=== PATIENT | female | born 1995 | race African-American/Black ===

== ENCOUNTER 2017-03-09 15:03 | Emergency (ER) | payer OTHER ==
[~2017-03-09] VITALS: Ht 154.9 cm; Wt 95.3 kg
[~2017-03-09 15:03] MED LIST: ALBUTEROL SULF8.5 GM INH; AZITHROMYCIN250 MG ORAL; DIFLUCAN150 MG PO; EXCEDRIN MIGRA1 EAC1 PO; IBUPROFEN600 MG ORAL; LIDOCAINE VISC100 ML MT; NAPROSYN500 M1 ORAL; NKM; PREDNISONE20 MG ORAL
[2017-03-09 15:54] LABS: APPEARANCE,URINE CLEAR; KETONES,URINE NEGATIVE (NEGATIVE); LEUKOCYTE ESTERASE ,URINE 3+ (NEGATIVE); NITRITE,URINE NEGATIVE (NEGATIVE); PH,URINE 7 (4.5-8.0); PROTEIN,URINE NEGATIVE (NEGATIVE); UROBILINOGEN,URINE NORMAL MG/DL (0.0-1.0)
[2017-03-09 16:06] LABS: BACTERIA,URINE FEW /HPF; SQUAMOUS EPITHELIAL CELL,UR FEW /LPF (NONE/OCC); YEAST,URINE FEW /HPF
[2017-03-09] MEDS ORDERED: Fluconazole 100mg tab ORAL ONE (16:15)
--- NOTE | 2017-03-09 17:03 | Emergency Room Report ---
History of Present Illness General Chief Complaint: Vaginal Source: Patient Present Illness HPI 21-year-old female presents to the emergency department complaining of vaginal discharge, malodorous, itching and swelling of the external vaginal labia x4 days. Patient denies fevers or chills. Patient denies recent unprotected intercourse or history of STDs. Patient denies abdominal pain, hematuria or frequency. Patient does report dysuria. She reports 10 out of 10 in severity burning sensation in the vaginal area. Patient denies swollen tender lymph nodes, joint pain or recent illness. She states she attempted to use Monistat OTC with no relief. She believes this may her symptoms worse. Denies CP, Palpitations, LOC, AMS, dizziness, Changes in Vision, Sensation, paresthesias, or a sudden severe headache. Allergies: Coded Allergies: No Known Allergies (Unverified , 03/25/14) Patient History Past Medical History: see triage record Past Surgical History: none Pertinent Family History: none Last Menstrual Period: 9-4 Now: No Immunizations: UTD Reviewed Nursing Documentation: PMH: Agreed, PSxH: Agreed Nursing Documentation-PMH Past Medical History: No History, Except For Hx Asthma: Yes Hx Seizures: Yes - last episode 10yrs ago Review of Systems All Other Systems: negative except mentioned in HPI Physical Exam Vital Signs Date Time Temp Pulse Resp B/P (MAP) Pulse Ox O2 Delivery O2 Flow Rate FiO2 03/09/17 15:07 98.1 91 18 95/74 98 Room Air Sp02 EP Interpretation: reviewed, normal General Appearance: no apparent distress, alert, GCS 15, non-toxic Head: normocephalic, atraumatic Eyes: bilateral eye normal inspection, bilateral eye PERRL ENT: hearing grossly normal, normal voice Neck: full range of motion Respiratory: lungs clear, normal breath sounds, speaking full sentences Cardiovascular #1: regular rate, rhythm Gastrointestinal: normal bowel sounds, non tender, soft, no guarding, no rebound Rectal: deferred Genitourinary: normal inspection, no CVA tenderness, adnexa normal, bladder normal, cervix normal, os closed, other - thick white/ yellow-green d/c noted in the vaginal vault, no CMT. External labia are swollen and erythematous. no lesions. Musculoskeletal: back normal, gait/station normal, normal range of motion, non- tender Neurologic: alert, oriented x3, responsive, motor strength/tone normal, sensory intact, speech normal Psychiatric: judgement/insight normal, memory normal, mood/affect normal Skin: normal color, no rash, warm/dry, well hydrated Lymphatic: no adenopathy Medical Decision Making PA Attestation Dr. Oliver is my supervising Physician whom patient management has been discussed with. Diagnostic Impression: Primary Impression: Yeast vaginitis Additional Impression: Bacterial vaginosis ER Course 21-year-old female presents to the emergency department complaining of vaginal discharge, malodorous, itching and swelling of the external vaginal labia x4 days. Patient denies fevers or chills. Patient denies recent unprotected intercourse or history of STDs. Patient denies abdominal pain, hematuria or frequency. Patient does report dysuria. She reports 10 out of 10 in severity burning sensation in the vaginal area. Patient denies swollen tender lymph nodes, joint pain or recent illness. She states she attempted to use Monistat OTC with no relief. She believes this may her symptoms worse. Denies CP, Palpitations, LOC, AMS, dizziness, Changes in Vision, Sensation, paresthesias, or a sudden severe headache. -Pt. requests OCP refill for ovarian cyst and menstrual cycle normalization. Ddx considered but are not limited to UTi , Pyelo, STI, Stone, Cystitis, vaginal laceration, vaginitis. Vital signs: are WNL, pt. is afebrile H& PE are most consistent with: UTI and possible vaginal wall laceration. ORDERS: - UA labs are attached - few yeast, otherwise no indication of urinary infection. -Urine hcg: negative - Vaginal Wet mount Prep: few yeast, few clue cells, mod WBC's, and many bacteria, no trich. ED INTERVENTIONS: -Diflucan PO -D/w Pt. the results of her lab work, discussed proper PMD follow up. Gave ED return precautions. also d/w pt. not to drink alcohol while taking flagyl. DISCHARGE: At this time pt. is stable for d/c to home. Will provide printed patient care instructions, and any necessary prescriptions. Care plan and follow up instructions have been discussed with the patient prior to discharge. Labs Test 03/09/17 15:35 Urine Color Pale yellow Urine Appearance Clear Urine pH 7 (4.5-8.0) Urine Specific [place] 1.010 (1.005-1.035) Urine Protein Negative (NEGATIVE) Urine Glucose (UA) Negative (NEGATIVE) Urine Ketones Negative (NEGATIVE) Urine Occult Blood 1+ (NEGATIVE) Urine Nitrite Negative (NEGATIVE) Urine Bilirubin Negative (NEGATIVE) Urine Urobilinogen Normal MG/DL (0.0-1.0) Urine Leukocyte Esterase 3+ (NEGATIVE) Urine RBC 2-4 /HPF (0 - 2) Urine WBC 2-4 /HPF (0 - 2) Urine Squamous Epithelial Cells Few /LPF (NONE/OCC) Urine Bacteria Few /HPF (NONE) Urine Yeast Few /HPF (NONE) Urine HCG, Qualitative Negative Last Vital Signs Date Time Temp Pulse Resp B/P (MAP) Pulse Ox O2 Delivery O2 Flow Rate FiO2 03/09/17 15:07 98.1 91 18 95/74 98 Room Air Disposition: HOME, SELF-CARE Condition: Stable Scripts Noreth A-Et Estra/Fe Fumarate (MICROGESTIN FE 1-20 TABLET) 1 Each Tablet 1 EACH PO DAILY for 30 Days, #1 PACK 4 Refills Prov: Anayeli Cruz P.A. 03/09/17 Ibuprofen* (MOTRIN*) 600 Mg Tablet 600 MG ORAL THREE TIMES A DAY, #30 TAB 0 Refills Prov: Anayeli Cruz P.A. 03/09/17 Fluconazole (FLUCONAZOLE) 100 Mg Tablet 100 MG ORAL DAILY for 2 Days, #2 TAB 0 Refills Prov: Anayeli Cruz P.A. 03/09/17 Metronidazole* (FLAGYL*) 500 Mg Tablet 500 MG ORAL BID for 7 Days, #14 TAB 0 Refills Prov: Anayeli Cruz P.A. 03/09/17 Patient Instructions: Bacterial Vaginosis, Grfu-ro-Otuh, Vaginal Yeast Infection, Adult Additional Instructions: Take medications as directed. Follow up with a Primary Care Provider in 3-5 days, even if your symptoms have resolved. --Please review list of primary care clinics, if you do not already have a primary care provider Return sooner to ED if new symptoms occur, or current symptoms become worse. ! Do not drink alcohol while taking Flagyl/Metronidazole as this will cause a skin reaction. - Please note that this Emergency Department Report was dictated using [employer] technology software, occasionally this can lead to erroneous entry secondary to interpretation by the dictation equipment. Anayeli Cruz Mar 09, 2017 17:03
[2017-03-09] MEDS ORDERED: IBUPROFEN600 MG ORAL (17:05)
[2017-03-09] MEDS ORDERED: FLUCONAZOLE100 MG ORAL (17:05)
[2017-03-09] MEDS ORDERED: METRONIDAZOLE500 MG ORAL (17:05)
[2017-03-09] MEDS ORDERED: MICROGESTIN FE1 EAC1 PO ×2 (17:05→17:08)
[2017-03-09 17:25] VITALS: BP 124/76
== END 2017-03-09 17:25 | disposition home or self-care (01) ==
LOC: EMR 17:20
DX: B37.3 Candidiasis of vulva and vagina (principal); N76.0 Acute vaginitis; B96.89 Other specified bacterial agents as the cause of diseases classified elsewhere; J45.909 Unspecified asthma, uncomplicated
CPT/HCPCS: 81003; 81025; 87086; 87210; 99284

== ENCOUNTER 2017-03-30 23:22 | Emergency (ER) | payer OTHER ==
[~2017-03-30] VITALS: Ht 154.9 cm; Wt 90.7 kg
[~2017-03-30 23:22] MED LIST changes: +FLUCONAZOLE100 MG ORAL; +METRONIDAZOLE500 MG ORAL; +MICROGESTIN FE1 EAC1 PO
[2017-03-31 00:02] VITALS: BP 105/69
[2017-03-31 00:17] LABS: APPEARANCE,URINE SLIGHTLY CLOUDY; KETONES,URINE NEGATIVE (NEGATIVE); LEUKOCYTE ESTERASE ,URINE 3+ (NEGATIVE); NITRITE,URINE NEGATIVE (NEGATIVE); PH,URINE 6 (4.5-8.0); PROTEIN,URINE 1+ (NEGATIVE); UROBILINOGEN,URINE NORMAL MG/DL (0.0-1.0)
[2017-03-31 00:31] LABS: BACTERIA,URINE MODERATE /HPF; MUCUS,URINE FEW /LPF (NONE/OCC); RBC,URINE 15-20 /HPF (0 - 2); SQUAMOUS EPITHELIAL CELL,UR MODERATE /LPF (NONE/OCC); WBC,URINE 30-40 /HPF (0 - 2)
[2017-03-31] MEDS ORDERED: BACTRIM DS TAB1 EAC1 ORAL (00:45)
[2017-03-31] MEDS ORDERED: METROGEL-VAGINA70 G1 VAGIN (00:45)
[2017-03-31 01:01] VITALS: BP 98/70
--- NOTE | 2017-03-31 04:14 | Emergency Room Report ---
History of Present Illness General Chief Complaint: Female Urogenital Problems Source: Patient Present Illness HPI Patient presents with complaints of burning with urination Urinary frequency Patient feels that she possibly has a yeast infection as well with some mild vaginal discharge Denies any chest pressures of breath denies any flank pain Suprapubic discomfort is rated as 3/10 Allergies: Coded Allergies: No Known Allergies (Unverified , 03/30/17) Patient History Past Medical History: see triage record Pertinent Family History: none Last Menstrual Period: mar 16 Now: No Reviewed Nursing Documentation: PMH: Agreed, PSxH: Agreed Nursing Documentation-PMH Past Medical History: No History, Except For Hx Asthma: Yes Hx Seizures: Yes - last episode 12yrs ago Review of Systems All Other Systems: negative except mentioned in HPI Physical Exam Vital Signs Date Time Temp Pulse Resp B/P (MAP) Pulse Ox O2 Delivery O2 Flow Rate FiO2 03/30/17 23:28 98.1 77 16 105/69 98 Room Air Sp02 EP Interpretation: reviewed, normal General Appearance: well appearing, no apparent distress Head: normocephalic, atraumatic Eyes: bilateral eye PERRL, bilateral eye EOMI ENT: hearing grossly normal, normal pharynx, TMs + canals normal, uvula midline Neck: full range of motion, supple, no meningismus, no bony tend Respiratory: lungs clear, normal breath sounds, no rhonchi, no respiratory distress, no retraction, no accessory muscle use Cardiovascular #1: normal peripheral pulses, regular rate, rhythm, no edema, no gallop, no JVD, no murmur Gastrointestinal: normal bowel sounds, non tender, soft, no mass, no organomegaly, non-distended, no guarding, no hernia, no pulsatile mass, no rebound Genitourinary: no CVA tenderness Musculoskeletal: normal inspection Neurologic: oriented x3, responsive, parquet floor layer III-XII nml as tested, motor strength/ tone normal, sensory intact Psychiatric: mood/affect normal Skin: normal color, no rash, warm/dry, palpation normal Lymphatic: normal inspection, no adenopathy Medical Decision Making Diagnostic Impression: Primary Impression: uti ER Course Patient has a benign medical evaluation my suspicion for pyelonephritis as low Patient has had a recent pelvic exam here in the emergency room Requires close followup with gynecology urine sample did show evidence of infection given her complaints of possible yeast infection patient was also symptomatically treated Labs Test 03/30/17 23:30 Urine Color Yellow Urine Appearance Slightly cloudy Urine pH 6 (4.5-8.0) Urine Specific [place] 1.030 (1.005-1.035) Urine Protein 1+ (NEGATIVE) Urine Glucose (UA) Negative (NEGATIVE) Urine Ketones Negative (NEGATIVE) Urine Occult Blood 2+ (NEGATIVE) Urine Nitrite Negative (NEGATIVE) Urine Bilirubin Negative (NEGATIVE) Urine Urobilinogen Normal MG/DL (0.0-1.0) Urine Leukocyte Esterase 3+ (NEGATIVE) Urine RBC 15-20 /HPF (0 - 2) Urine WBC 30-40 /HPF (0 - 2) Urine Squamous Epithelial Cells Moderate /LPF (NONE/OCC) Urine Bacteria Moderate /HPF (NONE) Urine Mucus Few /LPF (NONE/OCC) Urine HCG, Qualitative Negative Last Vital Signs Date Time Temp Pulse Resp B/P (MAP) Pulse Ox O2 Delivery O2 Flow Rate FiO2 03/31/17 01:01 98.1 81 20 98/70 100 Room Air Status: improved Disposition: HOME, SELF-CARE Condition: Stable Scripts Metronidazole* (METROGEL-VAGINAL*) 70 Gm Gel.w.appl 1 APPL VAGIN BEDTIME for 7 Days, GM Prov: DARCI LARA D.O. 03/31/17 Trimethoprim/Sulfamethoxazole 160/800* (BACTRIM DS TABLET*) 1 Each Tablet 1 TAB ORAL Q12H, #14 TAB 0 Refills Prov: DARCI LARA D.O. 03/31/17 Referrals: Tiago GARCIA,REFERRING (PCP) Patient Instructions: Urinary Tract Infection Additional Instructions: Patient is provided with the discharge instructions notified to follow up with primary doctor in the next 2-3 days otherwise return to the er with any worsening symptoms. Please note that this report is being documented using [employer] technology. This can lead to erroneous entry secondary to incorrect interpretation by the dictating instrument. DARCI LARA D.O. Mar 31, 2017 04:14
== END 2017-03-31 01:03 | disposition home or self-care (01) ==
LOC: EMR 03-31 00:22
DX: N39.0 Urinary tract infection, site not specified (principal); J45.909 Unspecified asthma, uncomplicated
CPT/HCPCS: 81003; 81025; 87086; 99283

== ENCOUNTER 2018-03-22 19:25 | Emergency (ER) | payer OTHER ==
[~2018-03-22] VITALS: Ht 154.9 cm; Wt 90.7 kg
[~2018-03-22 19:25] MED LIST changes: +BACTRIM DS TAB1 EAC1 ORAL; +METROGEL-VAGINA70 G1 VAGIN
[2018-03-22 19:53] VITALS: BP 109/78
--- NOTE | 2018-03-22 19:55 | Emergency Room Report ---
History of Present Illness General Chief Complaint: Abdominal Pain Source: Patient Present Illness HPI 23-year-old female patient presents ER complaining of diarrhea and painful urination 1 day. Reports diarrhea began at midnight today. Denies blood in stool. Denies recent travel outside states. Denies fever. Denies new foods in diet. Also complaining of painful urination. Reports yellow discharge during this time. Denies swelling Nicolas rash.. Denies hematuria or rash or lesions. Reports last sexual activity 2 months ago, states that use protection , reports one sexual partner. reports abdominal cramping during this time. Denies fever, chest pain, shortness of breath, flank pain, vomiting.denies back pain. Denies history of GI problems.denies foul smelling odor. Allergies: Coded Allergies: No Known Allergies (Unverified , 03/22/18) Patient History Past Medical History: see triage record Last Menstrual Period: February 2018 Reviewed Nursing Documentation: PMH: Agreed; PSxH: Agreed Nursing Documentation-PMH Past Medical History: No History, Except For Hx Asthma: Yes Hx Seizures: Yes - last episode 12yrs ago; ovarian cyst Review of Systems All Other Systems: negative except mentioned in HPI Physical Exam Vital Signs Date Time Temp Pulse Resp B/P (MAP) Pulse Ox O2 Delivery O2 Flow Rate FiO2 03/22/18 19:32 98.4 73 16 109/78 100 Room Air 98.4 Sp02 EP Interpretation: reviewed, normal General Appearance: well appearing, no apparent distress, alert, GCS 15, non- toxic Head: normocephalic, atraumatic Eyes: bilateral eye normal inspection, bilateral eye PERRL ENT: hearing grossly normal, normal pharynx, no angioedema, normal voice, uvula midline, moist mucus membranes Neck: full range of motion Respiratory: lungs clear, normal breath sounds, no rhonchi, no respiratory distress, no accessory muscle use, no wheezing, speaking full sentences Cardiovascular #1: regular rate, rhythm, no edema Gastrointestinal: non tender, soft, no mass, non-distended, no guarding, no rebound, other - negative obturator, negative Rovsing, negative Georges Genitourinary: no CVA tenderness Musculoskeletal: back normal, digits/nails normal, gait/station normal, normal range of motion, non-tender Neurologic: alert, oriented x3, responsive, motor strength/tone normal, sensory intact Psychiatric: mood/affect normal Skin: no rash Lymphatic: no adenopathy Medical Decision Making PA Attestation Dr. Schmid is my supervising Physician whom patient management has been discussed with. Diagnostic Impression: Primary Impression: Diarrhea Additional Impressions: Encounter for screening examination for sexually transmitted disease Dysuria ER Course Pt. presents to the ED c/o diarrhea and painful urination. Ddx considered but are not limited to gonorrhea, chalmydia, cystitis, pylonephritis, bacterial vaginosis, yeast infection. Ddx considered but are not limited to viral syndrome, gastritis, enteritis, no abdominal tenderness to palpation, negative Rovsing, negative obturator, does not require CT imaging, low suspicion for appendicitis. Vital signs: are WNL, pt. is afebrile Ordered UA, urine and abx. ER COURSE: UA results show no infection, does not require antibiotics at this time, low suspicion for UTI. Follow-up with PCP and discuss further treatment referral at that time. urine negative Provided patient with Rocephin and Azithromycin in the ER. Informed patient medications will cover for gonorrhea and chlamydia, needs further follow-up evaluation and possible treatment of other sexual transmitted infections. Advised to use safe sex practices including but not limited to use of condoms. Avoid sexual activity for the next weeks. Instructed patient to follow up with STI clinic and/or PCP for STI evaluation and further treatment as necessary. Instructed patient to inform partners of needs for evaluation and treatment of possible infections. Patient informed of likely viral cause of symptoms. No fever, no blood in stool, no recent travel or hospitalizations, does not require abx treatment at this time. No signs of dehydration, moist mucus membranes. Patient reports eating and drinking normally. Patient instructed on BRAT diet. Patient instructed to remain hydrated, drink plenty of fluids. Patient questions asked and answered. Patient states understanding and agreement to treatment plan. DISCHARGE: Patient is resting comfortably, in no acute distress, nontoxic appearing, talking without difficulty. Patient to take medications as instructed Will provide with patient care instructions and any necessary prescriptions. Care plan and follow-up instructions provided. Patient instructed to follow-up with primary care provider in 3 - 5 days. Patient questions asked and answered. Patient reports understanding and agreement to treatment plan. ER precautions given. Patient instructed to return to ER immediately for any new or worsening of symptoms including but not limited to increasing SOB, persistent fever. - Please note that this Emergency Department Report was dictated using [employer] technology software, occasionally this can lead to erroneous entry secondary to interpretation by the dictation equipment. Labs Test 03/22/18 19:38 Urine Color Yellow Urine Appearance Clear Urine pH 5 (4.5-8.0) Urine Specific [place] 1.025 (1.005-1.035) Urine Protein Negative (NEGATIVE) Urine Glucose (UA) Negative (NEGATIVE) Urine Ketones Negative (NEGATIVE) Urine Blood Negative (NEGATIVE) Urine Nitrite Negative (NEGATIVE) Urine Bilirubin Negative (NEGATIVE) Urine Urobilinogen Normal MG/DL (0.0-1.0) Urine Leukocyte Esterase 1+ (NEGATIVE) Urine RBC 0-2 /HPF (0 - 2) Urine WBC 0-2 /HPF (0 - 2) Urine Squamous Epithelial Cells Few /LPF (NONE/OCC) Urine Bacteria Few /HPF (NONE) Urine HCG, Qualitative Negative (NEGATIVE) Last Vital Signs Date Time Temp Pulse Resp B/P (MAP) Pulse Ox O2 Delivery O2 Flow Rate FiO2 03/22/18 19:32 98.4 73 16 109/78 100 Room Air 98.4 Disposition: HOME, SELF-CARE Condition: Stable Scripts Phenazopyridine Hcl* (PYRIDIUM*) 100 Mg Tablet 100 MG ORAL THREE TIMES A DAY for 3 Days, #9 TAB Prov: Israel Aviles 03/22/18 Patient Instructions: Diarrhea, Adult, [id number], Dysuria, Sexually Transmitted Disease Additional Instructions: Followup with primary care provider in 3 -5 days. Avoid spicy foods, avoid dairy foods. BRAT diet: bananas, rice, apple sauce, toast. Consider Imodium for diarrhea and Tylenol for pain symptoms. Followup with primary care provider and followup with STI clinic for further evaluation and treatment. Discuss referral to OBGYN and specialist as needed. Alert sexual partners for need for evaluation and treatment. Wear condoms during sex. Avoid sexual activity for 2 weeks. Drink plenty of fluids. Advised patient that Pyridium may cause urine to turn orange. Patient questions asked and answered. ER precautions given, patient instructed to return to ER immediately for any new or worsening of symptoms. Israel Aviles Mar 22, 2018 19:55
[2018-03-22] MEDS ORDERED: Azithromycin 250mg tab ORAL ONE (20:00)
[2018-03-22] MEDS ORDERED: Lidocaine 1% MPF 10mg/ml 5ml INJ ONE (20:00)
[2018-03-22 20:25] LABS: APPEARANCE,URINE CLEAR; BILIRUBIN, URINE NEGATIVE (NEGATIVE); NITRITE,URINE NEGATIVE (NEGATIVE); UROBILINOGEN,URINE NORMAL MG/DL (0.0-1.0)
[2018-03-22 20:37] LABS: GLUCOSE, URINE (UA) NEGATIVE (NEGATIVE); KETONES,URINE NEGATIVE (NEGATIVE); LEUKOCYTE ESTERASE ,URINE 1+ (NEGATIVE); PH,URINE 5 (4.5-8.0); PROTEIN,URINE NEGATIVE (NEGATIVE)
[2018-03-22 20:38] LABS: COLOR,URINE YELLOW
[2018-03-22] MEDS ORDERED: PHENAZOPYRIDIN100 MG ORAL (20:56)
[2018-03-22 21:06] VITALS: BP 110/78
== END 2018-03-22 21:08 | disposition home or self-care (01) ==
LOC: EMR 19:58
DX: R19.7 Diarrhea, unspecified (principal); R10.9 Unspecified abdominal pain; R30.0 Dysuria; Z11.3 Encounter for screening for infections with a predominantly sexual mode of transmission; J45.909 Unspecified asthma, uncomplicated
CPT/HCPCS: 81003; 81025; 96372; 99283; J0696; Q0144

== ENCOUNTER 2019-06-10 06:20 | Emergency (ER) | payer OTHER ==
[~2019-06-10] VITALS: Ht 154.9 cm; Wt 90.7 kg
[~2019-06-10 06:20] MED LIST changes: +PHENAZOPYRIDIN100 MG ORAL
[2019-06-10 06:44] VITALS: BP 107/68
--- NOTE | 2019-06-10 06:44 | Emergency Room Report ---
History of Present Illness General Chief Complaint: Chest Pain Source: Patient Present Illness HPI Patient presents with complaints of cough and congestion over the past 3 days onset was around Thursday Patient has been coughing up phlegm and now reports she saw tinges of blood as well Denies any headache denies any back or flank pain patient also has history of asthma There was a report of chest pain however patient's complaint is mainly with her cough causing pain to the upper chest Denies any pleurisy denies any fevers patient also has a sore throat and discomfort to the right ear Denies any posterior neck pain or photophobia Allergies: Coded Allergies: No Known Allergies (Unverified , 03/22/18) Patient History Past Medical History: see triage record Last Menstrual Period: 06/10/19 Now: No Reviewed Nursing Documentation: PMH: Agreed; PSxH: Agreed Nursing Documentation-PMH Hx Asthma: Yes Hx Seizures: Yes Review of Systems All Other Systems: negative except mentioned in HPI Physical Exam Vital Signs Date Time Temp Pulse Resp B/P (MAP) Pulse Ox O2 Delivery O2 Flow Rate FiO2 06/10/19 06:22 98.1 86 19 107/68 (81) 98 Room Air Sp02 EP Interpretation: reviewed, normal General Appearance: well appearing, no apparent distress Head: normocephalic, atraumatic Eyes: bilateral eye PERRL, bilateral eye EOMI ENT: hearing grossly normal, EOM grossly intact, pharyngeal erythema Neck: supple Respiratory: crackles - Fine crackles both lower lobes Cardiovascular #1: regular rate, rhythm, no edema Gastrointestinal: non tender, soft Musculoskeletal: normal inspection Neurologic: alert, oriented x3 Psychiatric: normal inspection Skin: no rash Lymphatic: no adenopathy Medical Decision Making Diagnostic Impression: Primary Impression: Pharyngitis ER Course Given the patient's history and presentation multiple differentials and consideration including but not limited to cardiac, cardiopulmonary, infectious etiology such as pneumonia, bronchitis pharyngitis, Patient does not appear septic or toxic given the history of asthma along with the duration of cough x-ray imaging is obtained No obvious acute process is seen Patient will be placed on antibiotics for the pharyngitis and requires close outpatient follow-up Chest X-Ray Diagnostic Results Chest X-Ray Diagnostic Results : Chest X-Ray Ordered: Yes # of Views/Limited/Complete: 1 View Indication: Other - Cough Interpretation: no consolidation, no effusion, no pneumothorax Impression: No acute disease Electronically Signed by: Corrie Russell DO Last Vital Signs Date Time Temp Pulse Resp B/P (MAP) Pulse Ox O2 Delivery O2 Flow Rate FiO2 06/10/19 06:22 98.1 86 19 107/68 (81) 98 Room Air Status: improved Disposition: HOME, SELF-CARE Condition: Stable Scripts Guaifenesin/Codeine Phos* (ROBITUSSIN AC*) 118 Ml Liquid 5 ML ORAL Q8HR PRN for For Cough for 5 Days, #118 ML 0 Refills Prov: Corrie Russell DO 06/10/19 Azithromycin* (ZITHROMAX*) 250 Mg Tablet 250 MG ORAL DAILY, #6 TAB 0 Refills Take two tables once daily for 1 day, then one tablet once daily for 4 days. Prov: Corrie Russell DO 06/10/19 Additional Instructions: Patient is provided with the discharge instructions notified to follow up with primary doctor in the next 2-3 days otherwise return to the er with any worsening symptoms. Please note that this report is being documented using [employer] technology. This can lead to erroneous entry secondary to incorrect interpretation by the dictating instrument. Corrie Russell DO Jun 10, 2019 06:44
[2019-06-10] MEDS ORDERED: ZITHROMAX250 MG ORAL (07:26)
[2019-06-10] MEDS ORDERED: GUAIFENESIN-CO118 M1 ORAL (07:26)
[2019-06-10 07:30] VITALS: BP 111/75
--- NOTE | 2019-06-10 15:18 | Diagnostic Imaging Report ---
Indication: Dyspnea Comparison: None A single view chest radiograph was obtained. Findings: Cardiomediastinal appearance is within normal limits for age. The lungs are clear. Pulmonary vascularity is appropriate. The diaphragmatic contour is smooth and costophrenic angles are sharp. No pleural effusions are identified. The bones are unremarkable. Impression: No acute findings
== END 2019-06-10 07:30 | disposition home or self-care (01) ==
LOC: EMR 07:03
DX: J02.9 Acute pharyngitis, unspecified (principal); J45.909 Unspecified asthma, uncomplicated; G40.909 Epilepsy, unspecified, not intractable, without status epilepticus
CPT/HCPCS: 71045; Z7502; 99283

== ENCOUNTER 2019-08-31 21:25 | Emergency (ER) | payer MEDICAID, OTHER ==
[~2019-08-31] VITALS: Ht 160 cm; Wt 105.7 kg
[~2019-08-31 21:25] MED LIST changes: +GUAIFENESIN-CO118 M1 ORAL; +ZITHROMAX250 MG ORAL
--- NOTE | 2019-08-31 21:43 | NUR ---
ED Nurse Note: pt presents to ED c/o vomiting for the last 8 weeks. pt states that she is 8 weeks and found out after 4 weeks. she has been vomiting daily since, reports 15 episodes of vomiting today. pt also states that she was spotting two days ago but not today. has pain in her RLQ, describes her abd as "feeling weak." pt denies blood in vomit, states it is mostly fluids
[2019-08-31 21:46] VITALS: BP 101/70
--- NOTE | 2019-08-31 21:52 | Emergency Room Report ---
History of Present Illness General Chief Complaint: Vomiting Source: Patient Present Illness HPI Patient presents with complaints of persistent nausea vomiting reports that she has been to [facility] 3 times over the past 2 weeks She did have an ultrasound done on last visit and was told that everything looked well with the Patient reports that on 1 of her last visit she was constipated and was given MiraLAX and she has done better with that Denies any diarrhea denies any chest pain or shortness of breath denies any pleurisy patient also has epigastric discomfort and burning Denies any vomiting of blood Patient reports being approximately 8 weeks COVID-19 risk:Contact w/high r: No COVID-19 risk:Travel to affect: No Has patient experienced parekh: No Allergies: Coded Allergies: No Known Allergies (Unverified , 03/22/18) Patient History Past Medical History: see triage record Last Menstrual Period: 07/06/19 Now: Yes : 1 Para: 0 Reviewed Nursing Documentation: PMH: Agreed; PSxH: Agreed Nursing Documentation-PMH Hx Asthma: Yes Hx Seizures: Yes Review of Systems All Other Systems: negative except mentioned in HPI Physical Exam Vital Signs Date Time Temp Pulse Resp B/P (MAP) Pulse Ox O2 Delivery O2 Flow Rate FiO2 08/31/19 21:27 97.9 89 18 101/70 (80) 98 Room Air Sp02 EP Interpretation: reviewed, normal General Appearance: no apparent distress - Patient however was somewhat nauseated Head: normocephalic, atraumatic Eyes: bilateral eye PERRL, bilateral eye EOMI ENT: hearing grossly normal, normal pharynx, TMs + canals normal, uvula midline Neck: full range of motion, supple, no meningismus, no bony tend Respiratory: lungs clear, normal breath sounds, no rhonchi, no respiratory distress, no retraction, no accessory muscle use Cardiovascular #1: normal peripheral pulses, regular rate, rhythm, no edema, no gallop, no JVD, no murmur Gastrointestinal: normal bowel sounds, non tender, soft, no mass - Patient is early in and a gravid abdomen is not palpable, no organomegaly, non- distended, no guarding, no hernia, no pulsatile mass, no rebound Genitourinary: no CVA tenderness Musculoskeletal: normal inspection Neurologic: motor strength/tone normal, label paster III-XII nml as tested, oriented x3 , sensory intact, responsive Psychiatric: mood/affect normal Skin: no rash Lymphatic: normal inspection, no adenopathy Medical Decision Making Diagnostic Impression: Primary Impression: Hyperemesis gravidarum ER Course With the patient's history and examination, multiple differentials considered, including but not limited to , ectopic , ovarian torsion, gastritis, cholecystitis, pancreatitis, appendicitis Patient reports several ultrasounds at [facility] we reported the baby was in the right place Therefore ultrasound was not repeated Patient had IV hydration along with antiemetics provided rested comfortably throughout her stay We discussed further outpatient care And given the patient's improvement she will attempt follow-up by [facility] in the next 2 to 3 days Labs Test 08/31/19 21:45 08/31/19 22:10 Urine Color Yellow Urine Appearance Clear Urine pH 6.5 (4.5-8.0) Urine Specific [place] 1.020 (1.005-1.035) Urine Protein 1+ (NEGATIVE) Urine Glucose (UA) Negative (NEGATIVE) Urine Ketones 4+ (NEGATIVE) Urine Blood Negative (NEGATIVE) Urine Nitrite Negative (NEGATIVE) Urine Bilirubin Negative (NEGATIVE) Urine Urobilinogen 8 MG/DL (0.0-1.0) Urine Leukocyte Esterase Negative (NEGATIVE) Urine RBC 2-4 /HPF (0 - 2) Urine WBC 2-4 /HPF (0 - 2) Urine Squamous Epithelial Cells Few /LPF (NONE/OCC) Urine Amorphous Sediment Few /LPF (NONE) Urine Bacteria Few /HPF (NONE) Urine Mucus Few /LPF (NONE/OCC) Urine HCG, Qualitative Positive (NEGATIVE) Urine Opiates Screen Negative (NEGATIVE) Urine Barbiturates Screen Negative (NEGATIVE) Phencyclidine (PCP) Screen Negative (NEGATIVE) Urine Amphetamines Screen Negative (NEGATIVE) Urine Benzodiazepines Screen Negative (NEGATIVE) Urine Cocaine Screen Negative (NEGATIVE) Urine Marijuana (THC) Screen Negative (NEGATIVE) White Blood Count 4.4 K/UL (4.8-10.8) Red Blood Count 4.44 M/UL (4.20-5.40) Hemoglobin 12.4 G/DL (12.0-16.0) Hematocrit 37.5 % (37.0-47.0) Mean Corpuscular Volume 85 FL (80-99) Mean Corpuscular Hemoglobin 27.9 PG (27.0-31.0) Mean Corpuscular Hemoglobin Concent 33.0 G/DL (32.0-36.0) Red Cell Distribution Width 13.1 % (11.6-14.8) Platelet Count 338 K/UL (150-450) Mean Platelet Volume 7.0 FL (6.5-10.1) Neutrophils (%) (Auto) 51.9 % (45.0-75.0) Lymphocytes (%) (Auto) 37.5 % (20.0-45.0) Monocytes (%) (Auto) 8.6 % (1.0-10.0) Eosinophils (%) (Auto) 0.8 % (0.0-3.0) Basophils (%) (Auto) 1.2 % (0.0-2.0) Sodium Level 142 MMOL/L (136-145) Potassium Level 3.7 MMOL/L (3.5-5.1) Chloride Level 105 MMOL/L (98-107) Carbon Dioxide Level 27 MMOL/L (21-32) Anion Gap 10 mmol/L (5-15) Blood Urea Nitrogen 6 mg/dL (7-18) Creatinine 0.6 MG/DL (0.55-1.30) Estimat Glomerular Filtration Rate > 60 mL/min (>60) Glucose Level 94 MG/DL (74-106) Calcium Level 9.3 MG/DL (8.5-10.1) Total Bilirubin 0.3 MG/DL (0.2-1.0) Aspartate Amino Transf (AST/SGOT) 24 U/L (15-37) Alanine Aminotransferase (ALT/SGPT) 40 U/L (12-78) Alkaline Phosphatase 49 U/L (46-116) Total Protein 7.8 G/DL (6.4-8.2) Albumin 3.7 G/DL (3.4-5.0) Globulin 4.1 g/dL Albumin/Globulin Ratio 0.9 (1.0-2.7) Lipase 102 U/L (73-393) Last Vital Signs Date Time Temp Pulse Resp B/P (MAP) Pulse Ox O2 Delivery O2 Flow Rate FiO2 08/31/19 21:46 97.9 84 18 101/70 98 Room Air Status: improved Disposition: HOME, SELF-CARE Condition: Improved Scripts Metoclopramide Hcl* (REGLAN*) 10 Mg Tablet 10 MG ORAL BID, #15 TAB Prov: Corrie Russell DO 08/31/19 Additional Instructions: Patient is provided with the discharge instructions notified to follow up with primary doctor in the next 2-3 days otherwise return to the er with any worsening symptoms. Please note that this report is being documented using [employer] technology. This can lead to erroneous entry secondary to incorrect interpretation by the dictating instrument. Corrie Russell DO Aug 31, 2019 21:52
[2019-08-31] MEDS ORDERED: DiphenhydrAMINE 50mg/ml Inj IVP ONE (22:00)
[2019-08-31] MEDS ORDERED: Metoclopramide 10mg/2ml Inj IVP ONE (22:00)
[2019-08-31 22:39] LABS: BASOPHILS % (AUTO) 1.2 % (0.0-2.0); EOSINOPHILS % (AUTO) 0.8 % (0.0-3.0); HEMATOCRIT 37.5 % (37.0-47.0); HEMOGLOBIN 12.4 G/DL (12.0-16.0); LYMPHOCYTES % (AUTO) 37.5 % (20.0-45.0); MEAN CORPUSCULAR VOLUME 85 FL (80-99); MONOCYTES % (AUTO) 8.6 % (1.0-10.0); NEUTROPHILS % (AUTO) 51.9 % (45.0-75.0); PLATELET COUNT 338 K/UL (150-450); RED BLOOD COUNT 4.44 M/UL (4.20-5.40); RED CELL DISTRIBUTION WIDTH 13.1 % (11.6-14.8); WHITE BLOOD COUNT 4.4 K/UL (4.8-10.8)
[2019-08-31 22:40] LABS: APPEARANCE,URINE CLEAR; BILIRUBIN, URINE NEGATIVE (NEGATIVE); GLUCOSE, URINE (UA) NEGATIVE (NEGATIVE); KETONES,URINE 4+ (NEGATIVE); LEUKOCYTE ESTERASE ,URINE NEGATIVE (NEGATIVE); NITRITE,URINE NEGATIVE (NEGATIVE); PH,URINE 6.5 (4.5-8.0); PROTEIN,URINE 1+ (NEGATIVE); UROBILINOGEN,URINE 8 MG/DL (0.0-1.0)
[2019-08-31 22:44] LABS: COLOR,URINE YELLOW
[2019-08-31 22:52] LABS: ANION GAP 10 mmol/L (5-15); BLOOD UREA NITROGEN 6 mg/dL (7-18); CALCIUM 9.3 MG/DL (8.5-10.1); CARBON DIOXIDE 27 MMOL/L (21-32); CHLORIDE 105 MMOL/L (98-107); CREATININE 0.6 MG/DL (0.55-1.30); POTASSIUM 3.7 MMOL/L (3.5-5.1); SODIUM 142 MMOL/L (136-145)
[2019-08-31 22:56] LABS: ALANINE AMINOTRANSFERASE 40 U/L (12-78); ALBUMIN 3.7 G/DL (3.4-5.0); ALBUMIN/GLOBULIN RATIO 0.9 (1.0-2.7); ALKALINE PHOSPHATASE 49 U/L (46-116); ASPARTATE AMINO TRANSFERASE 24 U/L (15-37); BILIRUBIN,TOTAL 0.3 MG/DL (0.2-1.0)
[2019-08-31] MEDS ORDERED: REGLAN10 MG ORAL (23:43)
--- NOTE | 2019-08-31 23:52 | NUR ---
ER DISCHARGE NOTE: Patient is cleared to be discharged per ERMD, pt is aox4, on room air, with stable vital signs. pt was given dc and prescription instructions, pt was able to verbalize understanding, pt id band and iv site removed without complications. pt is able to ambulate with steady gait. pt took all belongings.
[2019-08-31 23:53] VITALS: BP 101/70
== END 2019-08-31 23:52 | disposition home or self-care (01) ==
LOC: EMR 21:55
DX: O21.0 Mild hyperemesis gravidarum (principal); Z3A.08 8 weeks gestation of pregnancy
CPT/HCPCS: 36415; 80053; 80307; 81003; 81025; 83690; 85025; 96361; 96374; 96375; J1200; J2765; J7030; Z7502; 99284